=== PATIENT | female | born 1965 | race African-American/Black ===

== ENCOUNTER → 2021-10-04 10:17 | Outpatient (CLI) | payer BC, SELFPAY ==
--- NOTE | ~2021-10-04 | US_ITS ---
EXAMINATION: US pelvic complete DATE: 10/04/2021 10:51 INDICATION: Postmenopausal bleeding Comparison:No prior studies for comparison. TECHNIQUE: Multiple transabdominal and endovaginal sonographic images of the pelvis performed. FINDINGS: The uterus measures 13.5 x 8.5 x 11.2 cm. There are multiple uterine fibroids, largest lety uring up to 5.7 cm.. The endometrial complex measures 6 mm. The ovaries are not visualized, likely atrophic. There is no free fluid in the pelvis. There are no abnormal masses seen on either side. IMPRESSION: 1. Thickened endomtrial complex. The differential diagnosis includes endometrial hyperplasia, polyp a nd carcinoma. Biopsy is recommended. 2: Enlarged fibroid uterus. Reviewed, dictated and finalized at location A. IMPRESSION: 1. Thickened endomtrial complex. The differential diagnosis includes endometria l hyperplasia, polyp and carcinoma. Biopsy is recommended. 2: Enlarged fibroid uterus.
== END ==
PROVIDERS: PCP Family Medicine; Visit Provider Obstetrics & Gynecology Gynecology
DX: N95.0 Postmenopausal bleeding (principal); R93.89 Abnormal findings on diagnostic imaging of other specified body structures; D25.9 Leiomyoma of uterus, unspecified
CPT/HCPCS: 76856

== ENCOUNTER 2021-12-13 00:59 | Day surgery (SDC) | payer BC, SELFPAY ==
[2021-12-07 10:24] VITALS: BMI 39.6
--- NOTE | 2021-12-07 10:52 | PC.NURSE ---
Report to the Outpatient Waiting Room, entrance under the green pavilion located off [facility], at 0615 on 12-13-21. OR Time: 0815. Time changes happen often and if your time is changed the preop area will call you the afternoon before. - You and your visitor will be asked to self-screen and do not enter if you have any COVID symptoms. - Only one visitor and NO children visitors are allowed at this time. - The patient visitor is requested to leave or wait in car when not with patient due to restrictions. - A mask is required within the hospital. Patients may have clear liquids (water, carbonated beverages, clear teas, apple juice) until 3 hours prior to surgery with a maximum of 20 ounces. 0515 - No food from midnight until time of surgery - Infants may have breast milk until 4 hours before surgery, formula 6 hours prior to surgery. - Children will be allowed to drink immediately following surgery. If applicable, please bring a bottle or sippy cup to assist with drinking. Juice, water, soda, and popsicles are readily available. For infants on formula, please bring formula the day of surgery. Pacifiers are allowed. Take the following medications with a SIP of water the morning of surgery: None Medications to discontinue per physician: Vitamins and supplements Date to take last dose: 12-10-21 Please no make-up, nail japanese, hairspray, perfume, deodorant, or body powder the day of surgery. No jewelry (including any body piercings) or valuables the day of surgery, leave them at home. Please take a shower or bath the night before, or the morning of, surgery with an antibacterial soap. Wear comfortable, loose fitting clothing. Children are encouraged to wear pajamas. - Jewelry must be removed prior to entering the operating room. Rings and piercings that are not removed may be cut off. - The hospital will not accept responsibility for valuables. - Please leave all valuables, including medications, at home the day of surgery. If you are going home after surgery, a licensed equipment driver must drive you home. - NO public transportation without another adult. - We recommend that an adult stay with you for 24 hours following discharge. - We also recommend that you do not drive, make important decision, drink alcoholic beverages, or take any drugs that were not prescribed by your health care provider for at least 24 hours after your discharge time. For Pediatric surgeries, we recommend two adults accompany the child home (only one inside the building at this time). Follow any additional instructions given to you from your surgeon. If you or anyone in your household have experienced Covid symptoms in the past week, please notify your surgeon or the nurse liaison at the phone number below for possible testing. Telephone instructions given to Donna Apple and asked if any additional questions and then verbalized understanding. Patient advised to call surgeon office or pre surgery nurse liaison [phone] if any additional questions.
--- NOTE | 2021-12-13 06:59 | P.PNAN_ITS ---
Anes - Initial Pre Proc Eval Procedure: Operation Date: 12/13/21 08:15 Proposed Procedures p Hysteroscopy with Dilation and Curettage - Josy Zamarripa MD Date/Time: 12/13/21 06:59 Surgeon: Josy Zamarripa MD Pre Op Diagnosis: Post Menopausal Bleeding Patient Data Age: 56 Gender: F Height: 1.7 m Weight: 114.76 kg Allergies Allergy/AdvReac Type Severity Reaction Status Date / Time No Known Allergies Allergy Verified 12/07/21 10:21 Home Medications Medication Instructions Recorded Confirmed Type ergocalciferol (vitamin D2) 1,250 1,250 mcg PO WEEKLY 12/07/21 12/07/21 History mcg (50,000 unit) capsule magnesium oxide 400 mg (241.3 mg 400 mg PO DAILY 12/07/21 12/07/21 History magnesium) tablet vitamins no.119-iron 1 tablet PO DAILY 12/07/21 12/07/21 History fumarate 29 mg-folic acid 1 mg tablet (Se--19) Patient hx anesthesia problems: none Family hx anesthesia problems: none Results Review: All pre-operative results and documents have been reviewed as part of the pre- operative evaluation. [facility] Past Medical History Medical History Anemia Arthritis Tachyarrhythmia Social History Social History Smoking status: Never smoker Second hand tobacco smoke exposure: No Alcohol intake: never Substance use: never Substance use type: does not use Living arrangements: alone Spiritual care concerns: No Anes - Eval Final PreProcedure Day of Procedure 12/13/21 06:59 Patient weight: morbidly obese Heart: regular rate and rhythm Lungs: clear to auscultation Airway: Mallampati scale class II Neurological: alert and oriented Last oral intake: >/= 8 hours ASA classification: III Emergent: no Anesthetic plan: proceed Anesthesia type and monitoring: general GIVS and standard monitoring Results Review: All pre-operative results and documents have been reviewed as part of the pre- operative evaluation. Informed Consent: The patient's anesthetic plan and its attendant risks and benefits were discussed with the patient/family/POA. Questions were solicited and answers provided to the satisfaction of the patient/family/POA.
[2021-12-13] MEDS: ACETAMINOPHEN 500 MG TABLET 1000 MG PO (07:15)
[2021-12-13] MEDS: LACTATED RINGERS 1,000 ML 30 ML IV CONT (07:15)
--- NOTE | 2021-12-13 07:17 | WPDHPUPDATE1 ---
History and Physical Update Update Date/Time: 12/13/21 07:17 History and Physical has been reviewed, including an updated exam of the patient. There are NO changes in the patient's condition. Risks, benefits, and alternatives have been discussed and questions answered. Patient agrees to proceed with procedure.
--- NOTE | 2021-12-13 07:17 | PM.HPGS ---
History of Present Illness History of Present Illness Consent: Risks, benefits, and alternatives have been discussed and questions answered. Patient agrees to proceed with procedure. Chief complaint: Post Menopausal Bleeding Narrative: Donna Apple is a 56 year old female with postmenopausal bleeding. Patient's prior cycle was June of 2020 and she had bleeding October 01. With bleeding in September the patient does state she had breast tenderness prior to the bleeding. Pelvic ultrasound was performed and revealed a thickened endometrium measuring 6mm as well as multiple fibroids. It was recommended to proceed with D&C hysteroscopy. Risks of infection, bleeding, and perforation were reviewed. The plan for D&C hysteroscopy was reviewed. If the cavity can be fully assessed without removing any fibroids, that will be the plan as the patient is postmenopausal. If the cavity cannot be fully assessed and fibroids are blocking the view, myomectomy may be needed. The risk of fluid imbalance was also discussed. The patient voices understanding and agrees to proceed. Review of Systems Review of Systems: not repeated day of surgery; patient states no changes in status PMFSH Past Medical History Medical History (Updated 12/13/21 @ 07:23 by Josy Zamarripa MD) Arthritis (normal spontaneous vaginal delivery) Tachyarrhythmia Surgical History Surgical History (Updated 12/13/21 @ 07:22 by Josy Zamarripa MD) H/O knee surgery 1986 Status post hysteroscopic myomectomy 2015 and 2018 Social History Social History Smoking status: Never smoker Second hand tobacco smoke exposure: No Alcohol intake: never Substance use: never Substance use type: does not use Living arrangements: alone Spiritual care concerns: No Meds Home Medications and Allergies Home Medications Medication Instructions Recorded Confirmed Type ergocalciferol (vitamin D2) 1,250 1,250 mcg PO WEEKLY 12/07/21 12/07/21 History mcg (50,000 unit) capsule magnesium oxide 400 mg (241.3 mg 400 mg PO DAILY 12/07/21 12/07/21 History magnesium) tablet vitamins no.119-iron 1 tablet PO DAILY 12/07/21 12/07/21 History fumarate 29 mg-folic acid 1 mg tablet (Se-Gary-19) Allergies Allergy/AdvReac Type Severity Reaction Status Date / Time No Known Allergies Allergy Verified 09/27/22 10:21 Exam Const: General: healthy appearing and alert Orientation/consciousness: patient oriented x3 GI: GI Palp: Yes Soft to palpation, No Tenderness to palpation present (GI) and No Palpable mass present : External Female Exam: normal external appearance Speculum Exam - Vagina: normal appearance of the vagina and normal vaginal discharge Speculum Exam - Cervix: normal appearance of the cervix Bimanual exam- vagina & uterus: consistency normal and enlarged Bimanual Exam- Adnexa, other: normal adnexae and No adnexal tenderness Neuro: General: patient oriented x3 Assessment and Plan Assessment and plan (1) Post-menopausal bleeding: Code(s): N95.0 - Postmenopausal bleeding Status: Acute Assessment and Plan: plan to proceed with D&C hysteroscopy possible myomectomy
[2021-12-13 08:01] VITALS: BP 149/95; PULSE 70; RESP 14; TEMP 36.4; O2SAT 100
[2021-12-13] MEDS: LIDOCAINE HCL 1% PF 30 ML VIAL INFILTRATE (08:09)
[2021-12-13] MEDS: KETOROLAC 30 MG/ML VIAL (*BKC) IV PUSH (08:14)
--- NOTE | 2021-12-13 08:18 | W.PM.PROC2 ---
Procedure Note - Detailed Date of Procedure 12/13/21 Pre-op Diagnosis Post Menopausal Bleeding Post-op Diagnosis Same Procedure Performed D&C hysteroscopy Surgeon Josy Zamarripa MD Anesthesia MAC and Local Findings Cervix is stenotic. Uterus sounds to 9cm. There is old blood in the cavity. Endometrium appears grossly normal. Description of Procedure The patient is taken to the operating room and placed under anesthesia in the dorsal lithotomy position. She was prepped and draped in the usual sterile fashion. Cascade speculum was placed in the vagina and the cervix grasped on the anterior with a tenaculum. The cervix is injected in each quadrant with lidocaine. The uterus was attempted to be sounded the internal stenosis of the cervix is noted. Os Finders are used and the cervix is able to be entered. The uterus then sounds to 9cm. The cervix is serially dilated to an 8 Hegar. The diagnostic hysteroscope was placed with the above-stated findings. Old blood is suction out of the cavity. The hysteroscope was removed and the sharp curette used to curette the endometrium until a good uterine cry was noted in all areas. Minimal material was obtained consistent with the appearance. All instruments were then removed and the patient awakened from anesthesia and taken to recovery in stable condition. Sponge, needle, and instrument counts are correct per the OR staff. Estimated Blood Loss 5 Drains No Packing No Pathology Yes (Endometrial curettings) Complications No immediate complications Condition Stable Disposition PACU
[2021-12-13 08:21] VITALS: BP 122/75; PULSE 70; RESP 16; O2SAT 95
[2021-12-13] MEDS: fentaNYL CITRATE INJ (*CRX) 100 MCG/2 ML VIAL 25 MCG IV PUSH ×2 (08:38→08:46)
[2021-12-13 08:50] VITALS: BP 138/84; PULSE 60; RESP 20
[2021-12-13] MEDS: oxyCODONE HCL (*CRX) 5 MG TAB IR PO (09:01)
[2021-12-13 09:20] VITALS: BP 140/90; PULSE 90
[2021-12-13 09:40] VITALS: BP 131/71; PULSE 50; RESP 20
== END 2021-12-13 09:43 | disposition home or self-care (01) ==
PROVIDERS: PCP Family Medicine; Visit Provider Obstetrics & Gynecology Gynecology
PROC: 0U5B8ZZ Destruction of Endometrium, Via Natural or Artificial Opening Endoscopic (ICD-10-PCS; CPT 58563; principal; 2021-12-13 08:15)
DX: N95.0 Postmenopausal bleeding (principal); D64.9 Anemia, unspecified; E66.01 Morbid (severe) obesity due to excess calories; Z68.41 Body mass index [BMI] 40.0-44.9, adult
CPT/HCPCS: 58558; 88305; A9270; J1100; J1885; J2250; J2405; J2704; J3010; J7030; J7120